=== PATIENT | male | born 1960 | race Caucasian/White ===

== ENCOUNTER 2019-02-20 11:42 | Emergency (ER) | payer MEDICAID, OTHER ==
[~2019-02-20] VITALS: Ht 185.4 cm; Wt 127.3 kg
--- NOTE | 2019-02-20 12:33 | NUR ---
bp dropped 70/40's pa aware. iv and fluid started
[2019-02-20] MEDS ORDERED: TETanus/Pertussis (Acell)/Diphther VAC/PF (Tdap-Adult) 0.5ml syringe IM ONE (12:35)
[2019-02-20] MEDS ORDERED: LIDOcaine 1% w/EPI 1:200,000 injection 10mL vial IM ONE (12:35)
[2019-02-20] MEDS ORDERED: ibuprofen tablet 400 MG TABLET PO ONE (12:35)
[2019-02-20] MEDS ORDERED: LIDOcaine 1% w/epiNEPHrine 1:200,000 30ml vial IM ONE (12:55)
[2019-02-20 15:40] VITALS: BP 116/92
[2019-02-20] MEDS ORDERED: IBUP-1984 PO (15:50)
== END 2019-02-20 16:04 | disposition home or self-care (01) ==
LOC: ER 11:43
DX: S61.211A Laceration without foreign body of left index finger without damage to nail, initial encounter (principal); Z79.1 Long term (current) use of non-steroidal anti-inflammatories (NSAID); X58.XXXA Exposure to other specified factors, initial encounter; Y93.89 Activity, other specified; Y92.89 Other specified places as the place of occurrence of the external cause; Y99.8 Other external cause status
CPT/HCPCS: 12002; 73140; 90471; 99284